=== PATIENT | female | born 1985 | race African-American/Black ===

== ENCOUNTER 2017-08-22 15:24 | Observation (INO) | payer OTHER ==
[2017-08-22] VITALS (9 sets, daily range): BP systolic 111–144; BP diastolic 65–87; PULSE 82–111; RESP 15–16; TEMP 98.4–99; O2SAT 98–100
[~2017-08-22 15:24] MED LIST: ACET325T11 PO; PREN1TAB12 PO
[2017-08-22] MEDS ORDERED: IOHEXOL 350 MG/ML 10 ML VIAL (for RAD DIAG) IVCONTRAST ONE (15:25)
[2017-08-22] MEDS ORDERED: SODIUM CHLOR 0.9% 1000 ML INJ 1,000 ML IV ONE (15:29)
--- NOTE | 2017-08-22 15:42 | PD ---
HPI Chief Complaint: Stroke Alert Time Seen by Provider: 15:29 Travel History International Travel<30 days: No Contact w/Intl Traveler<30days: No Traveled to known affect area: No History of Present Illness HPI The patient is a 32-year-old after [place] female who presents emergency department as a stroke alert. According to EMS the patient was doing laundry earlier today at approximately 2:50 PM when her noted that she had a left facial droop. The patient apparently sat down couch and had a possible syncopal episode. The patient was noted to have left facial droop and weakness to left arm and leg. EMS states the patient also has some dysarthria upon arrival, therefore, stroke alert was called in the field. EMS states that while in route to the hospital her symptoms improved and then appeared to resolve. However, just prior to arrival to the hospital the patient's symptoms returned. Upon arrival the patient does appear to have some left facial droop, has weakness of left upper extremity, left lower extremity, numbness the left side of the body. She denies any previous history of seizure or stroke. She denies any trauma to the head. Symptoms are moderate, there are no current alleviating factors or exacerbating factors. [facility] Past Medical History Medical History: Denies Significant Hx Diminished Hearing: No Past Surgical History Surgical History: No Previous Surgery Social History Alcohol Use: No Tobacco Use: No Substance Use: No Allergies-Medications (Allergen,Severity, Reaction): Coded Allergies: penicillin G (Unverified Allergy, Severe, 08/22/17) Reported Meds & Prescriptions Reported Meds & Active Scripts Active No Active Prescriptions or Reported Medications Review of Systems Except as stated in HPI: all other systems reviewed are Neg Eyes: No: Visual changes HENT: No: Headaches, Lightheadedness Cardiovascular: No: Chest Pain or Discomfort Respiratory: No: Shortness of Breath Gastrointestinal: No: Nausea, Vomiting Musculoskeletal: Positive: Weakness Neurologic: Positive: Weakness, Focal Abnormalities, Slurred Speech, Paresthesia, Sensory Disturbance Physical Exam Narrative GENERAL: Awake, alert, pleasant 32 year-old female who appears her stated age and is in no acute respiratory distress. SKIN: Focused skin assessment warm/dry. HEAD: Atraumatic. Normocephalic. EYES: Pupils equal and round. 3 mm bilateral and reactive. EOMs are intact. Visual woodson appear symmetric. ENT: No nasal bleeding or discharge. Mucous membranes pink and moist. NECK: Trachea midline. No JVD. CARDIOVASCULAR: Regular rate and rhythm. No murmur appreciated. RESPIRATORY: No accessory muscle use. Clear to auscultation. Breath sounds equal bilaterally. GASTROINTESTINAL: Abdomen soft, non-tender, nondistended. Hepatic and splenic margins not palpable. MUSCULOSKELETAL: No obvious deformities. No clubbing. No cyanosis. No edema. NEUROLOGICAL: Awake and alert. Apparent right facial droop and asymmetry when smiling. Drift noted of the left arm and left leg. Decreased sensation to the left aspect of the face in V2 and V3 distribution as well as the left arm and left leg. Finger-nose is normal. Decreased ability to do left heel to the right lee. Mild dysarthria which appeared to clear during the conversation. Oriented to person and place. Visual woodson appear symmetric. PSYCHIATRIC: Appropriate mood and affect; insight and judgment normal. Data Data Last Documented VS Vital Signs Date Time Temp Pulse Resp B/P (MAP) Pulse Ox O2 Delivery O2 Flow Rate FiO2 08/22/17 16:30 96 16 130/75 (93) 100 Room Air 08/22/17 15:30 98.4 Orders Orders Diet Npo (08/22/17 Dinner) Activity Bed Rest (08/22/17 ) Electrocardiogram (08/22/17 ) I-Stat Creatinine (08/22/17 15:29) I-Stat Profile (08/22/17 15:29) Prothrombin Time / Inr (Pt) (08/22/17 15:29) Act Partial Throm Time (Ptt) (08/22/17 15:29) Complete Blood Count With Diff (08/22/17 15:29) Fibrinogen (08/22/17 15:29) Creatine Kinase (Cpk) (08/22/17 15:29) Troponin I (08/22/17 15:29) Ua Includes Microscopic (08/22/17 15:29) Drug Screen, Random Urine (08/22/17 15:29) Type And Screen (08/22/17 15:29) Ct Brain W/O Iv Contrast(Rout) (08/22/17 ) Cta Brain W Iv Contrast W 3d (08/22/17 15:29) Cta Neck W Iv Contrast W 3d (08/22/17 15:29) Beta Hcg (Quant/Titer) (08/22/17 15:29) Consult Neurology (08/22/17 ) Blood Glucose (08/22/17 15:29) Ecg Monitoring (08/22/17 15:29) Neuro Checks Q2HX12,Q4H (08/22/17 15:29) Nursing Bedside Swallow Assess .ONCE (08/22/17 15:29) Iv Access Insert/Monitor (08/22/17 15:29) NPO (08/22/17 15:29) Oximetry (08/22/17 15:29) Oxygen Administration (08/22/17 15:29) Sodium Chlor 0.9% 1000 Ml Inj (Ns 1000 M (08/22/17 15:29) Resp Oxygen Todd C Titrat 1-4 L (08/22/17 15:29) Cath For Specimen (08/22/17 15:29) Iohexol 350 Inj (Omnipaque 350 Inj) (08/22/17 15:25) (Hub Use Only)Inp Phy Cons/Ref (08/22/17 ) Portable Eeg (08/22/17 ) Aspirin (Aspirin) (08/22/17 16:15) Admit Order (Ed Use Only) (08/22/17 17:39) Labs Laboratory Tests Test 08/22/17 15:25 08/22/17 16:30 White Blood Count 6.2 TH/MM3 Red Blood Count 4.91 MIL/MM3 Hemoglobin 13.2 GM/DL Bedside Hemoglobin 14.3 G/DL Hematocrit 40.5 % Bedside Hematocrit 42.0 % Mean Corpuscular Volume 82.4 FL Mean Corpuscular Hemoglobin 26.9 PG Mean Corpuscular Hemoglobin Concent 32.6 % Red Cell Distribution Width 13.2 % Platelet Count 298 TH/MM3 Mean Platelet Volume 7.2 FL Neutrophils (%) (Auto) 42.9 % Lymphocytes (%) (Auto) 47.5 % Monocytes (%) (Auto) 8.1 % Eosinophils (%) (Auto) 0.9 % Basophils (%) (Auto) 0.6 % Neutrophils # (Auto) 2.6 TH/MM3 Lymphocytes # (Auto) 2.9 TH/MM3 Monocytes # (Auto) 0.5 TH/MM3 Eosinophils # (Auto) 0.1 TH/MM3 Basophils # (Auto) 0.0 TH/MM3 CBC Comment DIFF FINAL Differential Comment Prothrombin Time 10.2 SEC Prothromb Time International Ratio 1.0 RATIO Activated Partial Thromboplast Time 25.0 SEC Fibrinogen 296 mg/dL Bedside Sodium 140 MMOL/L Bedside Potassium 3.5 MMOL/L Bedside Chloride 104 MMOL/L Bedside Blood Urea Nitrogen 13 MG/DL Bedside Creatinine 0.9 MG/DL Bedside Glucose 96 MG/DL Total Creatine Kinase 68 U/L Troponin I LESS THAN 0.02 NG/ML Human Chorionic Gonadotropin, Quant LESS THAN 1 MIU/ML Urine Color LIGHT-YELLOW Urine Turbidity CLEAR Urine pH 6.0 Urine Specific [place] 1.020 Urine Protein NEG mg/dL Urine Glucose (UA) NEG mg/dL Urine Ketones NEG mg/dL Urine Occult Blood TRACE Urine Nitrite NEG Urine Bilirubin NEG Urine Urobilinogen LESS THAN 2.0 MG/DL Urine Leukocyte Esterase NEG Urine RBC LESS THAN 1 /hpf Urine Squamous Epithelial Cells 1 /hpf Urine Opiates Screen NEG Urine Barbiturates Screen NEG Urine Amphetamines Screen NEG Urine Benzodiazepines Screen NEG Urine Cocaine Screen NEG Urine Cannabinoids Screen NEG MDM Medical Screen Exam Complete: Yes Emergency Medical Condition: Yes Medical Record Reviewed: Yes EKG Prior to Arrival: No Differential Diagnosis Differential diagnosis includes CVA, TIA, intracranial hemorrhage, arrhythmia, seizure, thoughts paralysis, complicated migraine. Narrative Course IV was established, labs are drawn and sent, and the patient was placed on cardiac telemetry monitoring and continuous pulse oximetry monitoring. A stroke alert was called and the patient went immediately to CT for CT of the brain and CTA. I discussed the patient with the on-call neurologist, Dr. Troncoso, he does recommend CTA of the head and neck. The patient may be a TPA candidate , we'll reevaluate her stroke scale upon return from CT to evaluate if it is improving. According to EMS the patient's symptoms improved prior to arrival and then returned, she may be having crescendo TIA versus atypical seizure presentation with Selvin's paralysis. Dr. Troncoso and I reevaluated the patient upon return from CT. Her symptoms do appear to have improved, her left lower extremity weakness has improved and her speech has improved. The patient's exam appears to wax and wane, is not repeatable, but she does appear to have improved. Therefore, no TPA will be administered. The patient will be admitted to the hospital undergo further imaging. Stroke Alert NIHSS NIH Stroke Scale Result: 4 NIHSS Time Completed: 15:26 Procedures Interpretation(s) Last Impressions Neck CTA 1/12/18 1529 Signed Impressions: Service Date/Time: Tuesday, August 22, 2017 15:42 - CONCLUSION: Normal examination. Du Garza MD Head CTA 08/22/17 1529 Signed Impressions: Service Date/Time: Tuesday, August 22, 2017 15:42 - CONCLUSION: 1. Limited examination due to suboptimal arterial bolus timing. 2. No evidence for large vessel occlusion or significant cerebral artery stenosis. Wilder Olmos MD Head CT 08/22/17 0000 Signed Impressions: Service Date/Time: Tuesday, August 22, 2017 15:37 - CONCLUSION: 1. No acute intracranial abnormality. Wilder Olmos MD Laboratory Tests Test 08/22/17 15:25 08/22/17 16:30 White Blood Count 6.2 TH/MM3 Red Blood Count 4.91 MIL/MM3 Hemoglobin 13.2 GM/DL Bedside Hemoglobin 14.3 G/DL Hematocrit 40.5 % Bedside Hematocrit 42.0 % Mean Corpuscular Volume 82.4 FL Mean Corpuscular Hemoglobin 26.9 PG Mean Corpuscular Hemoglobin Concent 32.6 % Red Cell Distribution Width 13.2 % Platelet Count 298 TH/MM3 Mean Platelet Volume 7.2 FL Neutrophils (%) (Auto) 42.9 % Lymphocytes (%) (Auto) 47.5 % Monocytes (%) (Auto) 8.1 % Eosinophils (%) (Auto) 0.9 % Basophils (%) (Auto) 0.6 % Neutrophils # (Auto) 2.6 TH/MM3 Lymphocytes # (Auto) 2.9 TH/MM3 Monocytes # (Auto) 0.5 TH/MM3 Eosinophils # (Auto) 0.1 TH/MM3 Basophils # (Auto) 0.0 TH/MM3 CBC Comment DIFF FINAL Differential Comment Prothrombin Time 10.2 SEC Prothromb Time International Ratio 1.0 RATIO Activated Partial Thromboplast Time 25.0 SEC Fibrinogen 296 mg/dL Bedside Sodium 140 MMOL/L Bedside Potassium 3.5 MMOL/L Bedside Chloride 104 MMOL/L Bedside Blood Urea Nitrogen 13 MG/DL Bedside Creatinine 0.9 MG/DL Bedside Glucose 96 MG/DL Total Creatine Kinase 68 U/L Troponin I LESS THAN 0.02 NG/ML Human Chorionic Gonadotropin, Quant LESS THAN 1 MIU/ML Urine Color LIGHT-YELLOW Urine Turbidity CLEAR Urine pH 6.0 Urine Specific [place] 1.020 Urine Protein NEG mg/dL Urine Glucose (UA) NEG mg/dL Urine Ketones NEG mg/dL Urine Occult Blood TRACE Urine Nitrite NEG Urine Bilirubin NEG Urine Urobilinogen LESS THAN 2.0 MG/DL Urine Leukocyte Esterase NEG Urine RBC LESS THAN 1 /hpf Urine Squamous Epithelial Cells 1 /hpf Urine Opiates Screen NEG Urine Barbiturates Screen NEG Urine Amphetamines Screen NEG Urine Benzodiazepines Screen NEG Urine Cocaine Screen NEG Urine Cannabinoids Screen NEG Physician Communication Physician Communication I discussed the patient with Dr. Maciel who agrees with 23 hour observation. Diagnosis Diagnosis: Primary Impression: TIA (transient ischemic attack) Qualified Codes: G45.9 - Transient cerebral ischemic attack, unspecified Admitting Physician Requests: Observation Scripts No Active Prescriptions or Reported Meds Condition: Stable Faustino Newby MD Aug 22, 2017 15:42
[2017-08-22 15:50] LABS: AUTOMATED NEUTROPHIL # 2.6 TH/MM3 (1.8-7.7); BASOPHIL % 0.6 % (0.0-2.0); EOSINOPHIL # 0.1 TH/MM3 (0-0.4); EOSINOPHIL % 0.9 % (0.0-4.0); HEMATOCRIT 40.5 % (35.0-46.0); HEMOGLOBIN 13.2 GM/DL (11.6-15.3); LYMPH % 47.5 % (9.0-44.0); LYMPHOCYTE # 2.9 TH/MM3 (1.0-4.8); MEAN CELL VOLUME 82.4 FL (80.0-100.0); MEAN CORPUSCULAR HEMOGLOBIN 26.9 PG (27.0-34.0); MEAN CORPUSCULAR HGB CONC 32.6 % (32.0-36.0); MEAN PLATELET VOLUME 7.2 FL (7.0-11.0); MONO % 8.1 % (0.0-8.0); MONOCYTE # 0.5 TH/MM3 (0-0.9); NEUT % 42.9 % (16.0-70.0); PLATELET COUNT 298 TH/MM3 (150-450); RED BLOOD COUNT 4.91 MIL/MM3 (4.00-5.30); RED CELL DISTRIBUTION WIDTH 13.2 % (11.6-17.2); WHITE BLOOD COUNT 6.2 TH/MM3 (4.0-11.0)
--- NOTE | 2017-08-22 15:54 | RADRPT ---
EXAM DATE/TIME: 08/22/2017 15:37 [facility] COMPARISON: No previous studies available for comparison. INDICATIONS : Stroke Alert; left facial droop, left side weakness. RADIATION DOSE: 45.60 CTDIvol (mGy) This report was called by Dr. Kendrick to Dr. Newby at 1550. MEDICAL HISTORY : None SURGICAL HISTORY : None. ENCOUNTER: Initial ACUITY: 1 day PAIN SCALE: 0/10 LOCATION: cranial TECHNIQUE: Multiple contiguous axial images were obtained of the head. Using automated exposure control and adj ustment of the mA and/or kV according to patient size, radiation dose was kept as low as reasonably a chievable to obtain optimal diagnostic quality images. DICOM format image data is available electro nically for review and comparison. FINDINGS: CEREBRUM: The ventricles are normal for age. No evidence of midline shift, mass lesion, hemorrhage or acute in farction. No extra-axial fluid collections are seen. POSTERIOR FOSSA: The cerebellum and brainstem are intact. The 4th ventricle is midline. The cerebellopontine angle i s unremarkable. EXTRACRANIAL: The visualized portion of the orbits is intact. SKULL: The calvaria is intact. No evidence of skull fracture. CONCLUSION: 1. No acute intracranial abnormality. Wilder Olmos MD on August 22, 2017 at 15:48 Board Certified Radiologist. This report was verified electronically.
[2017-08-22 15:59] LABS: PROTHROMBIN TIME - PATIENT 10.2 SEC (9.8-11.6)
--- NOTE | 2017-08-22 16:03 | RADRPT ---
EXAM DATE/TIME: 08/22/2017 15:42 [facility] COMPARISON: No previous studies available for comparison. INDICATIONS : Stroke alert; left facial droop, left side weakness. IV CONTRAST: 73 cc Omnipaque 350 (iohexol) IV ; Cumulative dose for multiple exams. RADIATION DOSE: 28.69 CTDIvol (mGy) ; Combined studies MEDICAL HISTORY : None SURGICAL HISTORY : None. ENCOUNTER: Initial ACUITY: 1 day PAIN SCALE: 0/10 LOCATION: cranial TECHNIQUE: Volumetric scanning was performed using a multi-row detector CT scanner. The data was post processed with a variety of visualization algorithms including full volume maximum intensity projection, multi -planar sliding thin slab reformation, curved planar reformation, and surface rendering techniques. Using automated exposure control and adjustment of the mA and/or kV according to patient size, radiat ion dose was kept as low as reasonably achievable to obtain optimal diagnostic quality images. DICO M format image data is available electronically for review and comparison. FINDINGS: Examination is limited due to suboptimal arterial bolus timing. Anterior circulation: Distal intracranial internal carotid arteries are patent with flow extending to the middle and anteri or cerebral arteries. There is no evidence for aneurysm, vessel truncation or stenosis, and no eviden ce for vascular malformation. Posterior circulation: Symmetric distal vertebral arteries with flow extending to basilar artery. There is no evidence for aneurysm, vessel truncation or stenosis, and no evidence for vascular malformation. CONCLUSION: 1. Limited examination due to suboptimal arterial bolus timing. 2. No evidence for large vessel occlusion or significant cerebral artery stenosis. Wilder Olmos MD on August 22, 2017 at 15:57 Board Certified Radiologist. This report was verified electronically.
[2017-08-22] MEDS ORDERED: ASPIRIN 325 MG TAB PO ONE (16:15)
[2017-08-22 16:17] LABS: TROPONIN I LESS THAN 0.02 NG/ML (0.02-0.05)
--- NOTE | 2017-08-22 16:19 | RADRPT ---
EXAM DATE/TIME: 08/22/2017 15:42 [facility] COMPARISON: No previous studies available for comparison. INDICATIONS : Stroke alert; left facial droop, left side weakness. IV CONTRAST: 73 cc Omnipaque 350 (iohexol) IV ; Cumulative dose for multiple exams. RADIATION DOSE: 28.69 CTDIvol (mGy) ; Combined studies MEDICAL HISTORY : None SURGICAL HISTORY : None. ENCOUNTER: Initial ACUITY: 1 day PAIN SCALE: 0/10 LOCATION: neck Elevated flow velocities and ICA/CCA ratios have been found to correlate with increased degrees of vessel stenosis, calculated as percentage of diameter relative to a normal segment of distal ICA/CCA. TECHNIQUE: Volumetric scanning was performed using a multirow detector CT scanner. The data was post processed with a variety of visualization algorithms including full-volume maximum intensity projection, multip lanar sliding thin-slab reformation, curved-planar reformation, and surface-rendering techniques. Us ing automated exposure control and adjustment of the mA and/or kV according to patient size, radiatio n dose was kept as low as reasonably achievable to obtain optimal diagnostic quality images. DICOM f ormat image data is available electronically for review and comparison. FINDINGS: AORTIC ARCH: There is a three-vessel origin of the great vessels from the aorta. No evidence of ostial narrowing. RIGHT CAROTID: The common carotid artery is intact. The carotid bulb has a normal configuration without ulceration o r narrowing. The internal carotid artery lumen is smooth without stenosis. The external carotid stanley ry is intact. LEFT CAROTID: The common carotid artery is intact. The carotid bulb has a normal configuration without ulceration or narrowing. The internal carotid artery lumen is smooth without stenosis. The external carotid ar delma is intact. VERTEBRALS: The vertebral arteries have a symmetric diameter. No stenotic lesions are seen. CONCLUSION: Normal examination. Du Garza MD on August 22, 2017 at 16:14 Board Certified Radiologist. This report was verified electronically.
[2017-08-22 17:02] LABS: BILIRUBIN, URINE NEG (NEG); BLOOD, URINE TRACE (NEG); GLUCOSE,URINE NEG (NEG); KETONE, URINE NEG (NEG); NITRITE,URINE NEG (NEG); SQUAMOUS EPITHELIAL CELL URINE 1 /hpf (0-5); URINE COLOR LIGHT-YELLOW (YELLW/STRAW); URINE LEUKOCYTE ESTERASE NEG (NEG)
[2017-08-22] MEDS ORDERED: GADODIAMIDE PF 287 MG/ML 20 ML VIAL (for RAD MRI) IVCONTRAST ONE (17:42)
--- NOTE | 2017-08-22 17:57 | HHI.HP ---
HPI Service CP Hospitalists Primary Care Physician Unknown Admission Diagnosis TIA/transient neurologic deficit Chief Complaint: facial droop Travel History International Travel<30 Days: No Contact w/Intl Traveler <30 Da: No Traveled to Known Affected Are: No History of Present Illness Pt is 32 yo female with only medical hx of uterine fibroids. Was doing laundry when noted left facial droop. EMS noted lue and lle weakness and dysarthria. It improved in ED and then came back. Now it has resolved after came back from CT. no medication. no hx migraine /sz/cva. Seen by neuro and no tpa. ASA given and CTA brain no acute cva. no hx arrhythmia. Review of Systems Other left face droop/left arm/leg weakness dysarthria Past Family Social History Past Medical History uterine fibroids s/p appe Reported Medications no home medications no otc meds other than vitamins Allergies: Coded Allergies: penicillin G (Unverified Allergy, Severe, 08/22/17) Family History mom/dad..dm/htn/hyperlipidemia Social History no etoh/tob Physical Exam Vital Signs neuro:oriented. nad. cn 2-12 grossly intact no focal ext weakness no carotid bruit hear reg lung cta abd s/nt ext no edema Vital Signs Date Time Temp Pulse Resp B/P (MAP) Pulse Ox O2 Delivery O2 Flow Rate FiO2 08/22/17 16:30 96 16 130/75 (93) 100 Room Air 08/22/17 16:15 82 16 129/73 (91) 100 Room Air 08/22/17 16:00 97 16 136/86 (103) 100 Room Air 08/22/17 15:55 102 16 131/74 (93) 100 08/22/17 15:45 111 16 125/74 (91) 98 Room Air 08/22/17 15:34 100 16 131/82 (98) 100 Room Air 08/22/17 15:30 98.4 99 16 144/87 (106) 100 Laboratory Laboratory Tests Test 08/22/17 15:25 08/22/17 16:30 White Blood Count 6.2 Red Blood Count 4.91 Hemoglobin 13.2 Bedside Hemoglobin 14.3 Hematocrit 40.5 Bedside Hematocrit 42.0 Mean Corpuscular Volume 82.4 Mean Corpuscular Hemoglobin 26.9 Mean Corpuscular Hemoglobin Concent 32.6 Red Cell Distribution Width 13.2 Platelet Count 298 Mean Platelet Volume 7.2 Neutrophils (%) (Auto) 42.9 Lymphocytes (%) (Auto) 47.5 Monocytes (%) (Auto) 8.1 Eosinophils (%) (Auto) 0.9 Basophils (%) (Auto) 0.6 Neutrophils # (Auto) 2.6 Lymphocytes # (Auto) 2.9 Monocytes # (Auto) 0.5 Eosinophils # (Auto) 0.1 Basophils # (Auto) 0.0 CBC Comment DIFF FINAL Differential Comment Prothrombin Time 10.2 Prothromb Time International Ratio 1.0 Activated Partial Thromboplast Time 25.0 Fibrinogen 296 Bedside Sodium 140 Bedside Potassium 3.5 Bedside Chloride 104 Bedside Blood Urea Nitrogen 13 Bedside Creatinine 0.9 Bedside Glucose 96 Total Creatine Kinase 68 Troponin I LESS THAN 0.02 Human Chorionic Gonadotropin, Quant LESS THAN 1 Urine Color LIGHT-YELLOW Urine Turbidity CLEAR Urine pH 6.0 Urine Specific [place] 1.020 Urine Protein NEG Urine Glucose (UA) NEG Urine Ketones NEG Urine Occult Blood TRACE Urine Nitrite NEG Urine Bilirubin NEG Urine Urobilinogen LESS THAN 2.0 Urine Leukocyte Esterase NEG Urine RBC LESS THAN 1 Urine Squamous Epithelial Cells 1 Urine Opiates Screen NEG Urine Barbiturates Screen NEG Urine Amphetamines Screen NEG Urine Benzodiazepines Screen NEG Urine Cocaine Screen NEG Urine Cannabinoids Screen NEG Result Diagram: 08/22/17 1525 Caprini VTE Risk Assessment Caprini VTE Risk Assessment: No/Low Risk (score <= 1) Caprini Risk Assessment Model Point Value = 1 Point Value = 2 Point Value = 3 Point Value = 5 Age 41-60 Minor surgery BMI > 25 kg/m2 Swollen legs Varicose veins or History of unexplained or recurrent spontaneous Oral contraceptives or hormone replacement Sepsis (< 1 month) Serious lung disease, including pneumonia (< 1 month) Abnormal pulmonary function Acute myocardial infarction Congestive heart failure (< 1 month) History of inflammatory bowel disease Medical patient at bed rest Age 61-74 Arthroscopic surgery Major open surgery (> 45 min) Laparoscopic surgery (> 45 min) Malignancy Confined to bed (> 72 hours) Immobilizing plaster cast Central venous access Age >= 75 History of VTE Family history of VTE Factor V Leiden Prothrombin [id number] Lupus anticoagulant Anticardiolipin antibodies Elevated serum homocysteine Heparin-induced thrombocytopenia Other congenital or acquired thrombophilia Stroke (< 1 month) Elective arthroplasty Hip, pelvis, or leg fracture Acute spinal cord injury (< 1 month) Prophylaxis Regimen Total Risk Factor Score Risk Level Prophylaxis Regimen 0-1 Low Early ambulation 2 Moderate Order ONE of the following: *Sequential Compression Device (SCD) *Heparin 5000 units SQ BID 3-4 Higher Order ONE of the following medications: *Heparin 5000 units SQ TID *Enoxaparin/Lovenox 40 mg SQ daily (WT < 150 kg, CrCl > 30 mL/min) *Enoxaparin/Lovenox 30 mg SQ daily (WT < 150 kg, CrCl > 10-29 mL/min) *Enoxaparin/Lovenox 30 mg SQ BID (WT < 150 kg, CrCl > 30 mL/min) AND/OR *Sequential Compression Device (SCD) 5 or more Highest Order ONE of the following medications: *Heparin 5000 units SQ TID (Preferred with Epidurals) *Enoxaparin/Lovenox 40 mg SQ daily (WT < 150 kg, CrCl > 30 mL/min) *Enoxaparin/Lovenox 30 mg SQ daily (WT < 150 kg, CrCl > 10-29 mL/min) *Enoxaparin/Lovenox 30 mg SQ BID (WT < 150 kg, CrCl > 30 mL/min) AND *Sequential Compression Device (SCD) Assessment and Plan Problem List: (1) TIA (transient ischemic attack) ICD Codes: G45.9 - Transient cerebral ischemic attack, unspecified Status: Acute Plan: 1. left face droop/dysarthria with left arm/leg weakness now resolved no obvious acute cva on ct imaging. concern for possible tia no hx afib/sz/migraine/cva. not on estrogen prep. no fh thrombosis. no cigarettes. no known murmers/pfo seen by neuro. no tpa eeg done and pending. telemetry to monitor for arrhythmia fasting lipid, tsh hypercoag panel echo to eval for thrombus..?SANJAY if neuro feels she really did have tia ivf and hob flat now. scd's asa Problem Qualifiers (1) TIA (transient ischemic attack): Qualified Codes: G45.9 - Transient cerebral ischemic attack, unspecified Kevin Maciel MD Aug 22, 2017 17:56
[2017-08-22] MEDS ORDERED: POTASSIUM CHLORIDE 20 MEQ CONTROLLED RELEASE TAB PO ONE (18:00)
[2017-08-22] MEDS ORDERED: ONDANSETRON HCL 4 MG/2 ML VIAL IV PUSH PRN (19:00)
[2017-08-22] MEDS ORDERED: ACETAMINOPHEN 325 MG TAB PO PRN (19:00)
--- NOTE | 2017-08-22 20:51 | MG ---
cc: ANDI TRONCOSO MD Lab No: Date: Age: 32 Sex: F Race: DATE OF : 1985. MEDICAL HISTORY: Left-sided facial droop, left arm and leg weakness, called a stroke alert, mild dysarthria. MEDICATIONS: Aspirin. DESCRIPTION: Background activity is 9-10 Hz alpha located posteriorly with posterior to anterior gradient that attenuates to eye-opening. During the recording, there was drop out of the background activity replaced by slow wave theta rhythm , K complexes and sleep spindles and the patient transitioned to stage II sleep. Hyperventilation was omitted. Photic stimulation did not elicit a driving response. There were no electrographic seizures or epileptiform discharges noted. INTERPRETATION: This is a normal awake, drowsy and asleep EEG. There were no electrographic seizures or epileptiform discharges. Clinical correlation is recommended. Andi Troncoso MD [facility] /8:28 PM /8:42 PM [facility]
--- NOTE | 2017-08-22 21:17 | MB ---
cc: ANDI MURPHY MD DATE OF CONSULTATION: 08/22/2017. REASON FOR CONSULTATION: Stroke alert HISTORY OF PRESENT ILLNESS: The patient is a 32-year-old -Maltese female with past medical history of uterine fibroids. She presented to [facility] as a stroke alert. She was doing laundry when her noticed left facial droop. There was also reported left upper and lower extremity weakness with mild dysarthria that has improved. Initially the NIH stroke scale by the emergency department staff was 4 to 5; however, the patient's symptoms improved down to 2 with left lower extremity numbness and mild facial weakness. The examination was inconsistent during the repeated neurological evaluation by myself and the emergency department attending. The patient showed some difficulty in lifting up the left lower extremity stating that there was muscle cramping in the leg. Denies previous similar episodes, TIAs, recent head injury, psychological trauma , medications. She is not on control pills. A stat head CT scan in the emergency department reported no acute intracranial abnormality. Neck CTA and head CTA were inconclusive. The patient was deemed to be not a candidate for IV tPA with rapidly resolving symptoms and NIH stroke scale of 1 and an inconsistent neurologic examination. Aspirin was given. To be admitted to the floor for further stroke workup. REVIEW OF SYSTEMS: A twelve-point review of systems was negative except as stated in the history of present illness. PAST MEDICAL HISTORY: Uterine fibroids. MEDICATIONS: No home medications. ALLERGIES: PENICILLIN G FAMILY HISTORY: Noncontributory SOCIAL HISTORY: No drugs. No alcohol noted. No smoking. PHYSICAL EXAMINATION: GENERAL: Awake, overweight, good historian, not in acute distress. HEAD, EYES, EARS, NOSE, THROAT: Normocephalic and atraumatic. Intact hearing and intact vision. RESPIRATORY: Clear to auscultation. No wheezes. CARDIOVASCULAR: Regular rate and rhythm. NECK: The neck is supple. No carotid bruits. No signs of meningeal irritation. NEUROLOGICAL EXAMINATION: Awake, alert and oriented to time, person and place. No dysphasia. No dysarthria. Inconsistent facial weakness. Inconsistent left lower extremity weakness. Inconsistent neurological signs. No drift was noted. Joseph sign was positive. 5/5 bilateral symmetrical upper and lower extremities. Occasional inconsistency in the left lower extremity hip flexion. Sensation is intact throughout inconsistently sometimes diminished sensation of the left lower extremity. Intact facial sensation. No sensory in extension. Reflexes 2+ bilateral symmetrical. Plantars are bilaterally downgoing. PSYCHIATRIC: Appropriate mood and affect. No hallucinations. DIAGNOSTIC TESTS: - White blood cell count 6.2, hemoglobin 15.2, platelet count 298,000. Sodium 140, potassium 3.5, BUN 13, creatinine 0.9. DIAGNOSTIC IMAGING: - Head CT scan, neck CTA, head CTA were unremarkable. DIAGNOSTIC IMPRESSION: 1. Stroke alert. - Patient inconsistent exam and NIH stroke scale 1 with rapidly improving symptoms; thus, she was deemed not a candidate for tPA. - Carlos-facial spasm/dyskinesia, left facial PLAN: 1. Neuro checks q. 1 hourly. 2. Telemetry. 3. Cardiac echocardiogram. 4. EEG. 5. Aspirin 81 milligrams daily. 6. DVT prophylaxis. 7. GI prophylaxis. Thank you for the opportunity to participate in the care of your patient. MD ONUR Marroquin/PREET /8:34 PM /9:01 PM SUZANNA
--- NOTE | 2017-08-22 21:47 | RADRPT ---
EXAM DATE/TIME: 08/22/2017 20:49 [facility] COMPARISON: No previous studies available for comparison. INDICATIONS : Left sided weakness. MEDICAL HISTORY : None. SURGICAL HISTORY : Appendectomy. ENCOUNTER: Initial ACUITY: 1 day PAIN SCORE: 0/10 LOCATION: cranial TECHNIQUE: Multiplanar, multisequence MRI of the brain was performed without contrast. FINDINGS: CEREBRUM: The ventricles are normal for age. No evidence of midline shift, mass lesion, hemorrhage or acute in farction. No extraaxial fluid collections are seen. The pituitary gland and suprasellar cistern are normal in configuration. WHITE MATTER: No significant signal abnormalities are seen in the white matter. POSTERIOR FOSSA: The cerebellum and brainstem are intact. The 4th ventricle is midline. The cerebellopontine angle is unremarkable. The cerebellar tonsils are normal in position. DIFFUSION IMAGING: No focal areas of restricted diffusion are seen. No evidence of acute infarction. EXTRACRANIAL: The visualized portions of the orbits and paranasal sinuses are unremarkable. CONCLUSION: No acute intracranial findings. Lincoln Sanders MD on August 22, 2017 at 21:43 Board Certified Radiologist. This report was verified electronically.
[2017-08-23] VITALS (9 sets, daily range): BP systolic 98–107; BP diastolic 56–68; PULSE 76–84; RESP 15–20; TEMP 97.5–98.8; O2SAT 97–99
[2017-08-23] MEDS: ASPIRIN 325 MG TAB PO SCH (08:05)
[2017-08-23 09:03] LABS: BICARBONATE 23.5 MEQ/L (21.0-32.0); CALCIUM 8.2 MG/DL (8.5-10.1); CREATININE 0.85 MG/DL (0.50-1.00); MAGNESIUM 2.1 MG/DL (1.5-2.5); PHOSPHORUS 3.4 MG/DL (2.5-4.9)
[2017-08-23 09:05] LABS: CHOLESTEROL/ HDL RATIO 3.1 RATIO; HDL CHOLESTEROL 47.4 MG/DL (40.0-60.0)
--- NOTE | 2017-08-23 12:29 | HHI.PR ---
Review/Management Diagnosis 1. Stroke alert. 2. Patient inconsistent exam and NIH stroke scale 1 to 2 with rapidly improving symptoms; thus, she was deemed not a candidate for tPA. - Facial spasm, left sided - Possible tonic spasms, ? MS? partials seizures with secondary generalization Plan 1. Neuro checks q. 1 hourly. 2. Telemetry. 3. Cardiac echocardiogram. 4. MRI brain w/o & w contrast 5. Aspirin 81 milligrams daily. 6. DVT prophylaxis. 7. GI prophylaxis. 8. I explained at length to the family the current neurologic status and the plan, and possible need in the future for a Video EEG, I answered their questions and addressed their concerns to the best of my knowledge Diagnosis/Plan: Subjective Subjective Comments No acute events reported Family at bed side Active Medications Current Medications Medications (Trade) Dose Ordered Sig/Kylee Route Start Time Stop Time Status Last Admin (Aspirin) 325 mg DAILY PO 08/23/17 09:00 08/23/17 08:05 (Tylenol) 650 mg Q4H PRN PO 08/22/17 19:00 (Zofran Inj) 4 mg Q6HR PRN IV PUSH 08/22/17 19:00 Allergies Allergies Coded Allergies penicillin G (Unverified Allergy, Severe, 08/22/17) Review of Systems All other ROS: ROS reviewed as documented in chart Exam I&O / VS Vital Signs Date Time Temp Pulse Resp B/P (MAP) Pulse Ox O2 Delivery O2 Flow Rate FiO2 08/23/17 11:41 98.8 83 20 102/62 (75) 98 08/23/17 08:13 98.5 77 20 102/58 (73) 99 08/23/17 05:53 98.7 77 15 98/56 (70) 98 08/23/17 00:00 97.9 82 16 107/59 (75) 98 08/22/17 20:00 99.0 85 15 111/65 (80) 99 08/22/17 19:24 08/22/17 16:30 96 16 130/75 (93) 100 Room Air 08/22/17 16:15 82 16 129/73 (91) 100 Room Air 08/22/17 16:00 97 16 136/86 (103) 100 Room Air 08/22/17 15:55 102 16 131/74 (93) 100 08/22/17 15:45 111 16 125/74 (91) 98 Room Air 08/22/17 15:34 100 16 131/82 (98) 100 Room Air 08/22/17 15:30 98.4 99 16 144/87 (106) 100 Exam Comments GENERAL: Awake, overweight, good historian, not in acute distress. HEAD, EYES, EARS, NOSE, THROAT: Normocephalic and atraumatic. Intact hearing and intact vision. RESPIRATORY: Clear to auscultation. No wheezes. CARDIOVASCULAR: Regular rate and rhythm. NECK: The neck is supple. No carotid bruits. No signs of meningeal irritation. NEUROLOGICAL EXAMINATION: Awake, alert and oriented to time, person and place. No dysphasia. No dysarthria. Inconsistent facial weakness. Inconsistent left lower extremity weakness. Inconsistent neurological signs. No drift was noted. Joseph sign was positive. 5/5 bilateral symmetrical upper and lower extremities. Occasional inconsistency in the left lower extremity hip flexion. Sensation is intact throughout inconsistently sometimes diminished sensation of the left lower extremity. Intact facial sensation. No sensory in extension. Reflexes 2+ bilateral symmetrical. Plantars are bilaterally downgoing. PSYCHIATRIC: Appropriate mood and affect. No hallucinations. Objective Radiology Results Last 72 hours Impressions Neck CTA 08/22/17 1529 Signed Impressions: Service Date/Time: Tuesday, August 22, 2017 15:42 - CONCLUSION: Normal examination. Du Garza MD Head CTA 08/22/17 1529 Signed Impressions: Service Date/Time: Tuesday, August 22, 2017 15:42 - CONCLUSION: 1. Limited examination due to suboptimal arterial bolus timing. 2. No evidence for large vessel occlusion or significant cerebral artery stenosis. Wilder Olmos MD Head CT 08/22/17 0000 Signed Impressions: Service Date/Time: Tuesday, August 22, 2017 15:37 - CONCLUSION: 1. No acute intracranial abnormality. Wilder Olmos MD Brain MRI 08/22/17 0000 Signed Impressions: Service Date/Time: Tuesday, August 22, 2017 20:49 - CONCLUSION: No acute intracranial findings. Lincoln Sanders MD Micro and Labs Laboratory Tests Test 08/22/17 15:25 08/22/17 16:30 08/23/17 08:15 White Blood Count 6.2 Red Blood Count 4.91 Hemoglobin 13.2 Bedside Hemoglobin 14.3 Hematocrit 40.5 Bedside Hematocrit 42.0 Mean Corpuscular Volume 82.4 Mean Corpuscular Hemoglobin 26.9 Mean Corpuscular Hemoglobin Concent 32.6 Red Cell Distribution Width 13.2 Platelet Count 298 Mean Platelet Volume 7.2 Neutrophils (%) (Auto) 42.9 Lymphocytes (%) (Auto) 47.5 Monocytes (%) (Auto) 8.1 Eosinophils (%) (Auto) 0.9 Basophils (%) (Auto) 0.6 Neutrophils # (Auto) 2.6 Lymphocytes # (Auto) 2.9 Monocytes # (Auto) 0.5 Eosinophils # (Auto) 0.1 Basophils # (Auto) 0.0 CBC Comment DIFF FINAL Differential Comment Prothrombin Time 10.2 Prothromb Time International Ratio 1.0 Activated Partial Thromboplast Time 25.0 Fibrinogen 296 Bedside Sodium 140 Bedside Potassium 3.5 Bedside Chloride 104 Bedside Blood Urea Nitrogen 13 Bedside Creatinine 0.9 Bedside Glucose 96 Total Creatine Kinase 68 Troponin I LESS THAN 0.02 Thyroid Stimulating Hormone 3rd Gen 4.240 Human Chorionic Gonadotropin, Quant LESS THAN 1 Urine Color LIGHT-YELLOW Urine Turbidity CLEAR Urine pH 6.0 Urine Specific [place] 1.020 Urine Protein NEG Urine Glucose (UA) NEG Urine Ketones NEG Urine Occult Blood TRACE Urine Nitrite NEG Urine Bilirubin NEG Urine Urobilinogen LESS THAN 2.0 Urine Leukocyte Esterase NEG Urine RBC LESS THAN 1 Urine Squamous Epithelial Cells 1 Urine Opiates Screen NEG Urine Barbiturates Screen NEG Urine Amphetamines Screen NEG Urine Benzodiazepines Screen NEG Urine Cocaine Screen NEG Urine Cannabinoids Screen NEG Blood Urea Nitrogen 12 Creatinine 0.85 Random Glucose 82 Calcium Level 8.2 Phosphorus Level 3.4 Magnesium Level 2.1 Sodium Level 143 Potassium Level 3.9 Chloride Level 112 Carbon Dioxide Level 23.5 Anion Gap 8 Estimat Glomerular Filtration Rate 93 Triglycerides Level 50 Cholesterol Level 147 LDL Cholesterol 90 HDL Cholesterol 47.4 Cholesterol/HDL Ratio 3.10 Darrion Troncoso MD Aug 23, 2017 12:28
--- NOTE | 2017-08-23 13:47 | ECHRPT ---
Indication: cva/tia CONCLUSIONS Normal left ventricular size. The left ventricular systolic function is hyperdynamic with an estimated ejection fraction in the ra nge of 65- 70%. Mild mitral valve regurgitation. There is mild tricuspid valve regurgitation. The estimated pulmonary arterial pressure is 31.3 mmHg. Mild pulmonary valve regurgitation. BP: / HR: Rhythm: MEASUREMENTS (Male / Female) Normal Values Technical Quality:Fair 2D ECHO LV Diastolic Diameter PLAX 4.3 cm 4.2 - 5.9 / 3.9 - 5.3 cm LV Systolic Diameter PLAX 2.7 cm IVS Diastolic Thickness 0.9 cm 0.6 - 1.0 / 0.6 - 0.9 cm LVPW Diastolic Thickness 0.9 cm 0.6 - 1.0 / 0.6 - 0.9 cm LV Relative Wall Thickness 0.4 RV Internal Dim ED PLAX 2.1 cm M-MODE Aortic Root Diameter MM 3.0 cm LA Systolic Diameter MM 2.8 cm LA Ao Ratio MM 0.9 AV Cusp Separation MM 1.8 cm DOPPLER Mitral E Point Velocity 74.0 cm/s Mitral A Point Velocity 51.8 cm/s Mitral E to A Ratio 1.4 LV E' Lateral Velocity 17.4 cm/s Mitral E to LV E' Lateral Ratio 4.3 LV E' Septal Velocity 11.5 cm/s Mitral E to LV E' Septal Ratio 6.4 TR Peak Velocity 231.0 cm/s TR Peak Gradient 21.3 mmHg Right Atrial Pressure 10.0 mmHg Pulmonary Artery Systolic Pressu 31.3 mmHg Right Ventricular Systolic Press 31.3 mmHg FINDINGS LEFT VENTRICLE Normal left ventricular size. The left ventricular systolic function is hyperdynamic with an estimated ejection fraction in the ra nge of 65- 70%. RIGHT VENTRICLE Normal right ventricular size and systolic function. LEFT ATRIUM The left atrial size is normal. RIGHT ATRIUM The right atrial size is normal. ATRIAL SEPTUM Normal atrial septal thickness without atrial level shunting by limited color doppler interrogation. AORTA The aortic root and proximal ascending aorta are normal in size on limited imaging. MITRAL VALVE Structurally normal mitral valve. Mild mitral valve regurgitation. AORTIC VALVE Trileaflet aortic valve. No aortic valve stenosis or regurgitation. TRICUSPID VALVE Structurally normal tricuspid valve. There is mild tricuspid valve regurgitation. The estimated pulmonary arterial pressure is 31.3 mmHg. PULMONARY VALVE Mild pulmonary valve regurgitation. VESSELS The inferior vena cava is normal in size. PERICARDIUM No pericardial effusion. Govea E. Reji MD (Electronically Signed) Final Date:23 August 2017 13:46
--- NOTE | 2017-08-23 14:02 | HHI.PR ---
Subjective Remarks Pt is a previously healthy 32 y/o F admitted with c/o Left facial droop, LUE/ LLE weakness. Pt's symptoms have waxed and waned. Pt did NOT require tPA in the ER. Pt is being co-managed with neurology. Neuroimaging studies have all been unremarkable. Pt with NO new complaints today. Objective Vitals Vital Signs Date Time Temp Pulse Resp B/P (MAP) Pulse Ox O2 Delivery O2 Flow Rate FiO2 08/23/17 11:41 98.8 83 20 102/62 (75) 98 08/23/17 08:13 98.5 77 20 102/58 (73) 99 08/23/17 05:53 98.7 77 15 98/56 (70) 98 08/23/17 00:00 97.9 82 16 107/59 (75) 98 08/22/17 20:00 99.0 85 15 111/65 (80) 99 08/22/17 19:24 08/22/17 16:30 96 16 130/75 (93) 100 Room Air 08/22/17 16:15 82 16 129/73 (91) 100 Room Air 08/22/17 16:00 97 16 136/86 (103) 100 Room Air 08/22/17 15:55 102 16 131/74 (93) 100 08/22/17 15:45 111 16 125/74 (91) 98 Room Air 08/22/17 15:34 100 16 131/82 (98) 100 Room Air 08/22/17 15:30 98.4 99 16 144/87 (106) 100 Result Diagram: 08/22/17 1525 08/23/17 0815 Imaging Last Impressions Neck CTA 08/22/17 1529 Signed Impressions: Service Date/Time: Tuesday, August 22, 2017 15:42 - CONCLUSION: Normal examination. Du Garza MD Head CTA 08/22/17 1529 Signed Impressions: Service Date/Time: Tuesday, August 22, 2017 15:42 - CONCLUSION: 1. Limited examination due to suboptimal arterial bolus timing. 2. No evidence for large vessel occlusion or significant cerebral artery stenosis. Wilder Olmos MD Head CT 08/22/17 0000 Signed Impressions: Service Date/Time: Tuesday, August 22, 2017 15:37 - CONCLUSION: 1. No acute intracranial abnormality. Wilder Olmos MD Brain MRI 08/22/17 0000 Signed Impressions: Service Date/Time: Tuesday, August 22, 2017 20:49 - CONCLUSION: No acute intracranial findings. Lincoln Sanders MD A/P Problem List: (1) TIA (transient ischemic attack) ICD Codes: G45.9 - Transient cerebral ischemic attack, unspecified Status: Acute Plan: - comgmt with Neurology - pt admitted with c/o left face droop/dysarthria with left arm/leg weakness now resolved - CTA brain (08/22) --> negative - CT brain (08/22) --> negative - CTA neck (08/22) --> negative - MRI brain (08/22) without contrast --> negative - MRI brain (08/23) with contrast --> negative study. NO findings c/w Multiple Sclerosis - EEG (08/22) --> NO seizure activity - telemetry reviewed --> NSR - hypercoag panel - echo to eval for thrombus..?SANJAY if neuro feels she really did have tia --> results of echocardiogram pending - ASA - SCDs - MRI brain with contrast ordered by Neurology - hypercoag panel pending - TSH slightly elevated 4.2. I would repeat this outpt in 4 weeks - obtain free T4, b12, folate, rpr, ammonia - per neurology consider video EEG, would need outpt referal - anticipate discharge to home 08/24 - Case d/w pt/ at the bedside at length all questions addressed as thoroughly as possible. Problem Qualifiers (1) TIA (transient ischemic attack): Qualified Codes: G45.9 - Transient cerebral ischemic attack, unspecified Kelechi Chi DO Aug 23, 2017 14:02
--- NOTE | 2017-08-23 14:57 | RADRPT ---
EXAM DATE/TIME: 08/23/2017 14:00 [facility] COMPARISON: CT BRAIN W/O CONTRAST, August 22, 2017, 15:37. INDICATIONS : Left sided weakness. Multiple sclerosis. CONTRAST: 16 cc Omniscan (gadodiamide) IV MEDICAL HISTORY : None. SURGICAL HISTORY : Appendectomy. ENCOUNTER: Initial ACUITY: 1 day PAIN SCORE: 0/10 LOCATION: cranial TECHNIQUE: Multiplanar, multisequence MRI of the brain was performed both prior to and following the administrat ion of paramagnetic contrast. FINDINGS: CEREBRUM: The ventricles are normal for age. No evidence of midline shift, mass lesion, hemorrhage or acute in farction. No extraaxial fluid collections are seen. The pituitary gland and suprasellar cistern are normal in configuration. WHITE MATTER: No significant signal abnormalities are seen in the white matter. POSTERIOR FOSSA: The cerebellum and brainstem are intact. The 4th ventricle is midline. The cerebellopontine angle is unremarkable. The cerebellar tonsils are normal in position. DIFFUSION IMAGING: No focal areas of restricted diffusion are seen. No evidence of acute infarction. EXTRACRANIAL: The visualized portions of the orbits and paranasal sinuses are unremarkable. POST-CONTRAST: No abnormal areas of parenchymal or dural enhancement. No evidence of blood-brain barrier breakdown. CONCLUSION: Unremarkable exam with no evidence of infarction or white matter abnormality. Robin Al MD on August 23, 2017 at 14:52 Board Certified Radiologist. This report was verified electronically.
[2017-08-24 00:50] VITALS: BP 99/62; PULSE 76; RESP 16; TEMP 98.4; O2SAT 98
[2017-08-24 03:40] VITALS: BP 100/66; PULSE 66; RESP 17; TEMP 97.6; O2SAT 98
[2017-08-24 08:00] VITALS: BP 103/69; PULSE 75; PULSE 79; RESP 16; TEMP 97.8; O2SAT 98
--- NOTE | 2017-08-24 08:03 | MG ---
cc: ANDI MURPHY MD Sex: F DATE OF 1985 MEDICAL HISTORY No past medical history. The patient came to the hospital with left-sided facial droop, left arm and leg weakness, numbness, dysarthria, presented as a stroke alert. MEDICATIONS Aspirin. DESCRIPTION The background activity is 8-9 Hz alpha located posteriorly, attenuates to eye opening with posterior anterior gradient. During the recording there was drop out of the background replaced by theta rhythm with appearance of sleep spindles and K complexes, transitioning to stage II sleep. Hyperventilation was omitted. Photic stimulation did not elicit driving response. There were no electrographic seizures or epileptiform discharges noted during the recording. INTERPRETATION This is a normal awake, drowsy and asleep EEG. There were no electrographic seizures or epileptiform discharges noted during the recording. Clinical correlation is recommended. MD ONUR Marroquin/MONA /12:06 AM /7:55 AM [facility]
[2017-08-24] MEDS: ASPIRIN 325 MG TAB PO SCH (09:20)
[2017-08-24 09:53] LABS: FOLATE 10.6 NG/ML (3.1-17.5); FREE T4 0.94 NG/DL (0.76-1.46)
--- NOTE | 2017-08-24 10:39 | HHI.PR ---
Review/Management Diagnosis 1. Stroke alert, no clinical or radiologic evidence of a stroke 2. Patient inconsistent exam and NIH stroke scale 1 to 2 with rapidly improving symptoms; thus, she was deemed not a candidate for tPA. 3. Facial spasm, left sided, possibly dyskinesia. Unlikely partials seizures with secondary generalization Plan -Neurologic exam is non focal - Neurologic investigations are unremarkable for an acute intracraniala abnormality - I recommend Clonazepam 0.25mg nightly - Follow up with neurology as outpatient in three weeks. - I explained at length to the family the current neurologic status and the plan , and possible need in the future for a Video EEG, I answered their questions and addressed their concerns to the best of my knowledge Diagnosis/Plan: Subjective Subjective Comments No acute events reported No headache No chest pain No dyspnea Active Medications Current Medications Medications (Trade) Dose Ordered Sig/Kylee Route Start Time Stop Time Status Last Admin (Aspirin) 325 mg DAILY PO 08/23/17 09:00 08/24/17 09:20 (Tylenol) 650 mg Q4H PRN PO 08/22/17 19:00 (Zofran Inj) 4 mg Q6HR PRN IV PUSH 08/22/17 19:00 Allergies Allergies Coded Allergies penicillin G (Unverified Allergy, Severe, 08/22/17) Review of Systems All other ROS: ROS reviewed as documented in chart Exam I&O / VS Vital Signs Date Time Temp Pulse Resp B/P (MAP) Pulse Ox O2 Delivery O2 Flow Rate FiO2 08/24/17 08:00 97.8 79 16 103/69 (80) 98 08/24/17 03:40 97.6 66 17 100/66 (77) 98 08/24/17 00:50 98.4 76 16 99/62 (74) 98 08/23/17 23:00 76 08/23/17 20:15 98.7 84 16 99/68 (78) 97 08/23/17 16:00 83 08/23/17 16:00 97.5 80 17 107/68 (81) 98 08/23/17 12:00 80 08/23/17 11:41 98.8 83 20 102/62 (75) 98 Exam Comments GENERAL: Awake, overweight, good historian, not in acute distress. HEAD, EYES, EARS, NOSE, THROAT: Normocephalic and atraumatic. Intact hearing and intact vision. RESPIRATORY: Clear to auscultation. No wheezes. CARDIOVASCULAR: Regular rate and rhythm. NECK: The neck is supple. No carotid bruits. No signs of meningeal irritation. NEUROLOGICAL EXAMINATION: Awake, alert and oriented to time, person and place. No dysphasia. No dysarthria. Inconsistent facial weakness. Inconsistent left lower extremity weakness. Inconsistent neurological signs. No drift was noted. Joseph sign was positive. 5/5 bilateral symmetrical upper and lower extremities. Occasional inconsistency in the left lower extremity hip flexion. Sensation is intact throughout inconsistently sometimes diminished sensation of the left lower extremity. Intact facial sensation. No sensory in extension. Reflexes 2+ bilateral symmetrical. Plantars are bilaterally downgoing. PSYCHIATRIC: Appropriate mood and affect. No hallucinations. Objective Micro and Labs Laboratory Tests Test 08/24/17 08:55 Ammonia 18 Vitamin B12 Level 456 Folate 10.6 Free Thyroxine 0.94 Darrion Troncoso MD Aug 24, 2017 10:39
[2017-08-24 12:00] VITALS: BP 102/62; PULSE 74; RESP 17; TEMP 98.4; O2SAT 98
--- NOTE | 2017-08-24 13:21 | HHI.DCPOC ---
Discharge Care Plan Diagnosis: (1) Transient neurologic deficit Goals to Promote Your Health * To prevent worsening of your condition and complications * To maintain your health at the optimal level Directions to Meet Your Goals Take your medications as prescribed Follow your dietary instruction Follow activity as directed Keep your appointments as scheduled Take your immunizations and boosters as scheduled If your symptoms worsen call your PCP, if no PCP go to Urgent Care Center or Emergency Room Smoking is Dangerous to Your Health. Avoid second hand smoke Call the 24-hour hour crisis hotline for domestic abuse at Marlene De La Cruz Aug 24, 2017 13:21 Kelechi Chi DO Aug 26, 2017 00:16
--- NOTE | 2017-08-24 13:32 | HHI.PR ---
Subjective Remarks No new neurological deficits Pt very anxious to go home Objective Vitals Vital Signs Date Time Temp Pulse Resp B/P (MAP) Pulse Ox O2 Delivery O2 Flow Rate FiO2 08/24/17 12:00 98.4 74 17 102/62 (75) 98 08/24/17 08:00 75 08/24/17 08:00 97.8 79 16 103/69 (80) 98 08/24/17 03:40 97.6 66 17 100/66 (77) 98 08/24/17 00:50 98.4 76 16 99/62 (74) 98 08/23/17 23:00 76 08/23/17 20:15 98.7 84 16 99/68 (78) 97 08/23/17 16:00 83 08/23/17 16:00 97.5 80 17 107/68 (81) 98 Result Diagram: 08/22/17 1525 08/23/17 0815 Other Results Laboratory Tests Test 08/22/17 15:25 08/22/17 16:30 08/23/17 08:15 08/24/17 08:55 White Blood Count 6.2 TH/MM3 Red Blood Count 4.91 MIL/MM3 Hemoglobin 13.2 GM/DL Bedside Hemoglobin 14.3 G/DL Hematocrit 40.5 % Bedside Hematocrit 42.0 % Mean Corpuscular Volume 82.4 FL Mean Corpuscular Hemoglobin 26.9 PG Mean Corpuscular Hemoglobin Concent 32.6 % Red Cell Distribution Width 13.2 % Platelet Count 298 TH/MM3 Mean Platelet Volume 7.2 FL Neutrophils (%) (Auto) 42.9 % Lymphocytes (%) (Auto) 47.5 % Monocytes (%) (Auto) 8.1 % Eosinophils (%) (Auto) 0.9 % Basophils (%) (Auto) 0.6 % Neutrophils # (Auto) 2.6 TH/MM3 Lymphocytes # (Auto) 2.9 TH/MM3 Monocytes # (Auto) 0.5 TH/MM3 Eosinophils # (Auto) 0.1 TH/MM3 Basophils # (Auto) 0.0 TH/MM3 CBC Comment DIFF FINAL Differential Comment Prothrombin Time 10.2 SEC Prothromb Time International Ratio 1.0 RATIO Activated Partial Thromboplast Time 25.0 SEC Fibrinogen 296 mg/dL Bedside Sodium 140 MMOL/L Bedside Potassium 3.5 MMOL/L Bedside Chloride 104 MMOL/L Bedside Blood Urea Nitrogen 13 MG/DL Bedside Creatinine 0.9 MG/DL Bedside Glucose 96 MG/DL Total Creatine Kinase 68 U/L Troponin I LESS THAN 0.02 NG/ML Thyroid Stimulating Hormone 3rd Gen 4.240 uIU/ML Human Chorionic Gonadotropin, Quant LESS THAN 1 MIU/ML Urine Color LIGHT-YELLOW Urine Turbidity CLEAR Urine pH 6.0 Urine Specific [place] 1.020 Urine Protein NEG mg/dL Urine Glucose (UA) NEG mg/dL Urine Ketones NEG mg/dL Urine Occult Blood TRACE Urine Nitrite NEG Urine Bilirubin NEG Urine Urobilinogen LESS THAN 2.0 MG/DL Urine Leukocyte Esterase NEG Urine RBC LESS THAN 1 /hpf Urine Squamous Epithelial Cells 1 /hpf Urine Opiates Screen NEG Urine Barbiturates Screen NEG Urine Amphetamines Screen NEG Urine Benzodiazepines Screen NEG Urine Cocaine Screen NEG Urine Cannabinoids Screen NEG Blood Urea Nitrogen 12 MG/DL Creatinine 0.85 MG/DL Random Glucose 82 MG/DL Calcium Level 8.2 MG/DL Phosphorus Level 3.4 MG/DL Magnesium Level 2.1 MG/DL Sodium Level 143 MEQ/L Potassium Level 3.9 MEQ/L Chloride Level 112 MEQ/L Carbon Dioxide Level 23.5 MEQ/L Anion Gap 8 MEQ/L Estimat Glomerular Filtration Rate 93 ML/MIN Triglycerides Level 50 MG/DL Cholesterol Level 147 MG/DL LDL Cholesterol 90 MG/DL HDL Cholesterol 47.4 MG/DL Cholesterol/HDL Ratio 3.10 RATIO Ammonia 18 MCMOL/L Vitamin B12 Level 456 PG/ML Folate 10.6 NG/ML Free Thyroxine 0.94 NG/DL Imaging Last Impressions Brain MRI 08/23/17 0000 Signed Impressions: Service Date/Time: Wednesday, August 23, 2017 14:00 - CONCLUSION: Unremarkable exam with no evidence of infarction or white matter abnormality. Robin Al MD Neck CTA 08/22/17 1529 Signed Impressions: Service Date/Time: Tuesday, August 22, 2017 15:42 - CONCLUSION: Normal examination. Du Garza MD Head CTA 08/22/17 1529 Signed Impressions: Service Date/Time: Tuesday, August 22, 2017 15:42 - CONCLUSION: 1. Limited examination due to suboptimal arterial bolus timing. 2. No evidence for large vessel occlusion or significant cerebral artery stenosis. Wilder Olmos MD Head CT 08/22/17 0000 Signed Impressions: Service Date/Time: Tuesday, August 22, 2017 15:37 - CONCLUSION: 1. No acute intracranial abnormality. Wilder Olmos MD Last Impressions Neck CTA 08/22/17 1529 Signed Impressions: Service Date/Time: Tuesday, August 22, 2017 15:42 - CONCLUSION: Normal examination. Du Garza MD Head CTA 08/22/17 1529 Signed Impressions: Service Date/Time: Tuesday, August 22, 2017 15:42 - CONCLUSION: 1. Limited examination due to suboptimal arterial bolus timing. 2. No evidence for large vessel occlusion or significant cerebral artery stenosis. Wilder Olmos MD Head CT 08/22/17 0000 Signed Impressions: Service Date/Time: Tuesday, August 22, 2017 15:37 - CONCLUSION: 1. No acute intracranial abnormality. Wilder Olmos MD Brain MRI 08/22/17 0000 Signed Impressions: Service Date/Time: Tuesday, August 22, 2017 20:49 - CONCLUSION: No acute intracranial findings. Lincoln Sanders MD Objective Remarks General: NAD, AAOx3 Chest: CTA Cardiac: Regular Abd: +BS, soft ND/NT Ext: No edema Neuro: No neurological deficits noted, CAMPBELL, no appreciable weakness in UE or LE A/P Problem List: (1) Transient neurologic deficit ICD Codes: R29.818 - Other symptoms and signs involving the nervous system Plan: - comgmt with Neurology - Pt admitted as a stroke alert with c/o left face droop/dysarthria with left arm/leg weakness now resolved, no clinical or radiologic evidence of a stroke - Pts exam has been inconsistent and she had rapidly improving symptoms; thus, she was deemed not a candidate for tPA. - CTA brain (08/22) --> negative - CT brain (08/22) --> negative - CTA neck (08/22) --> negative - MRI brain (08/22) without contrast --> negative - MRI brain (08/23) with contrast --> negative study. NO findings c/w Multiple Sclerosis - EEG (08/22) --> NO seizure activity - Telemetry reviewed --> NSR - Hypercoag panel is pending. - 2D echo --> Normal LV size, Estimated EF 65-70%, mild mitral valve regurg, mild tricuspid valve regurg, estimated PA pressure 31.3mmHg - TSH slightly elevated 4.2. I would repeat this outpt in 4 weeks - Free T4 0.94, B12 456, folate 10.6, RPR is pending, Ammonia is 18 - On 08/23 she had some facial spasm, left sided, possibly dyskinesia. Neurology feels this is unlikely partials seizures - Pt has been cleared for discharge by Neurology with outpt followup in 3 weeks. - Per neurology consider video EEG, would need outpt referral - Case d/w pt/ at the bedside at length. All questions addressed as thoroughly as possible. - Pt will need outpt followup with Neurology in 3 weeks. - She will need to followup with her PCP, Dr. Hedrick, in 1 week. Assessment and Plan Patient examined. Assessment and plan formulated with Marlene De La Cruz PA-C. I agree with the above. Marlene De La Cruz Aug 24, 2017 13:32 Kelechi Chi DO Aug 26, 2017 00:15
[2017-08-24 16:00] VITALS: BP 113/67; PULSE 69; RESP 17; TEMP 97.8; O2SAT 100
--- NOTE | 2017-08-24 16:56 | HHI.DCPOC ---
Discharge Care Plan Diagnosis: (1) Transient neurologic deficit Goals to Promote Your Health * To prevent worsening of your condition and complications * To maintain your health at the optimal level Directions to Meet Your Goals Take your medications as prescribed Follow your dietary instruction Follow activity as directed Keep your appointments as scheduled Take your immunizations and boosters as scheduled If your symptoms worsen call your PCP, if no PCP go to Urgent Care Center or Emergency Room Smoking is Dangerous to Your Health. Avoid second hand smoke Call the 24-hour hour crisis hotline for domestic abuse at Kelechi Chi DO Aug 24, 2017 16:56
[2017-08-27 16:24] LABS: CARDIOLIPIN IGG AB <9.4 GPL; CARDIOLIPIN IGM AB <9.4 MPL
[2017-08-27 17:31] LABS: PROTEIN C ACTIVITY 90 % (70 - 150); PROTEIN S ACTIVITY 61 % (50 - 160)
[2017-08-27 17:50] LABS: DRVVT 1:1 MIX ND (CORRECTED); DRVVT CONFIRM ND (NEGATIVE); HEXAGONAL PHASE CONFIRM ND (NEGATIVE)
[2017-08-28 03:50] LABS: BETA2-GLYCOPROTEIN IGA <9 SAU (< OR = 20); BETA2-GLYCOPROTEIN IGG <9 SGU (< OR = 20); BETA2-GLYCOPROTEIN IGM <9 SMU (< OR = 20)
== END 2017-08-24 18:52 | disposition home or self-care (01) ==
LOC: NEPE 15:24 → UNDOADMOB 17:41 → NEDA 17:41 → N05B 19:36 → UNDODISOB 08-24 18:52
PROVIDERS: ADMIT Hospitalist; ATTEND Hospitalist
DX: R29.818 Other symptoms and signs involving the nervous system (principal); I08.1 Rheumatic disorders of both mitral and tricuspid valves; R56.9 Unspecified convulsions; G24.9 Dystonia, unspecified; Z79.82 Long term (current) use of aspirin
CPT/HCPCS: 70450; 70496; 70498; 70551; 70553; 80048; 80061; 80307; 81001; 81240; 81241; 82140; 82435; 82550; 82565; 82607; 82746; 82947; 83735; 84100; 84132; 84295; 84439; 84443; 84484; 84520; 84702; 85025; 85303; 85306; 85384; 85610; 85613; 85730; 86146; 86147; 86592; 86850; 86900; 86901; 93306; 95819; 96360; 99285; A9579; G0378; J7030; P9612; Q9967

== ENCOUNTER 2017-11-10 17:02 | Emergency (ER) | payer OTHER ==
[~2017-11-10] VITALS: Ht 170.2 cm; Wt 85.0 kg
[2017-11-10 17:22] VITALS: BP 132/74; PULSE 80; RESP 16; TEMP 98.7; O2SAT 100
--- NOTE | 2017-11-10 18:43 | PD ---
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 She denies any fevers or any other issues. Modifying Factors: None Associated Signs & Symptoms: , passing large blood clots Risk Factors: None PFSH Past Medical History Medical History: Denies Significant Hx Cancer: No Cardiovascular Problems: No Diminished Hearing: No Genitourinary: No Immune Disorder: No Musculoskeletal: No Neurologic: No Reproductive: Yes Respiratory: No Tetanus Vaccination: < 5 Years Influenza Vaccination: No ?: LMP: 08/28/17 : 2 Para: 1 Miscarriage: 0 : 0 Past Surgical History Surgical History: No Previous Surgery Social History Alcohol Use: No Tobacco Use: No Substance Use: No Allergies-Medications (Allergen,Severity, Reaction): Coded Allergies: penicillin G (Unverified Allergy, Severe, 11/10/17) Reported Meds & Prescriptions Reported Meds & Active Scripts Active No Active Prescriptions or Reported Medications Review of Systems Except as stated in HPI: all other systems reviewed are Neg Physical Exam Narrative GENERAL: Well-developed young -[place] female patient currently in mild distress. Awake and oriented 3. SKIN: Focused skin assessment warm/dry. HEAD: Atraumatic. Normocephalic. EYES: Pupils equal and round. No scleral icterus. No injection or drainage. ENT: No nasal bleeding or discharge. Mucous membranes pink and moist. NECK: Trachea midline. No JVD. Supple. CARDIOVASCULAR: Regular rate and rhythm. No murmur appreciated. RESPIRATORY: No accessory muscle use. Clear to auscultation. Breath sounds equal bilaterally. GASTROINTESTINAL: Abdomen soft, mild pelvic tenderness without guarding or rebound, nondistended. Hepatic and splenic margins not palpable. GENITOURINARY: Normal external genitalia without lesions or erythema. Vaginal vault with with small amount of blood but no drainage. Cervical os was closed without drainage. No cervical motion tenderness. Uterus nontender. Bilateral adnexa nontender without masses. MUSCULOSKELETAL: No obvious deformities. No clubbing. No cyanosis. No edema. NEUROLOGICAL: Awake and alert. No obvious cranial nerve deficits. Motor grossly within normal limits. Normal speech. PSYCHIATRIC: Appropriate mood and affect; insight and judgment normal. Data Data Last Documented VS Vital Signs Date Time Temp Pulse Resp B/P (MAP) Pulse Ox O2 Delivery O2 Flow Rate FiO2 11/10/17 20:45 78 16 100/63 (75) 100 Room Air 11/10/17 17:22 98.7 Orders Orders Complete Blood Count With Diff (11/10/17 18:38) Comprehensive Metabolic Panel (11/10/17 18:38) Urinalysis - C+S If Indicated (11/10/17 18:38) Iv Access Insert/Monitor (11/10/17 18:38) Lipase (11/10/17 18:38) Beta Hcg (Quant/Titer) (11/10/17 18:40) Complete Rh (11/10/17 18:40) Us Pelvis (Ques Preg/Ectopic) (11/10/17 21:45) Ed Discharge Order (11/10/17 22:18) Labs Laboratory Tests Test 11/10/17 18:35 11/10/17 19:45 White Blood Count 6.0 TH/MM3 Red Blood Count 4.27 MIL/MM3 Hemoglobin 11.5 GM/DL Hematocrit 35.6 % Mean Corpuscular Volume 83.3 FL Mean Corpuscular Hemoglobin 27.0 PG Mean Corpuscular Hemoglobin Concent 32.4 % Red Cell Distribution Width 13.5 % Platelet Count 271 TH/MM3 Mean Platelet Volume 7.9 FL Neutrophils (%) (Auto) 57.5 % Lymphocytes (%) (Auto) 34.3 % Monocytes (%) (Auto) 6.5 % Eosinophils (%) (Auto) 0.4 % Basophils (%) (Auto) 1.3 % Neutrophils # (Auto) 3.4 TH/MM3 Lymphocytes # (Auto) 2.1 TH/MM3 Monocytes # (Auto) 0.4 TH/MM3 Eosinophils # (Auto) 0.0 TH/MM3 Basophils # (Auto) 0.1 TH/MM3 CBC Comment DIFF FINAL Differential Comment Blood Urea Nitrogen 5 MG/DL Creatinine 0.64 MG/DL Random Glucose 79 MG/DL Total Protein 7.7 GM/DL Albumin 3.4 GM/DL Calcium Level 8.7 MG/DL Alkaline Phosphatase 59 U/L Aspartate Amino Transf (AST/SGOT) 14 U/L Alanine Aminotransferase (ALT/SGPT) 21 U/L Total Bilirubin 0.4 MG/DL Sodium Level 136 MEQ/L Potassium Level 3.7 MEQ/L Chloride Level 106 MEQ/L Carbon Dioxide Level 22.2 MEQ/L Estimat Glomerular Filtration Rate 129 ML/MIN Lipase 67 U/L Human Chorionic Gonadotropin, Quant 81415 MIU/ML Urine Color YELLOW Urine Turbidity CLEAR Urine pH 6.0 Urine Specific [place] 1.015 Urine Protein NEG mg/dL Urine Glucose (UA) NEG mg/dL Urine Ketones 15 mg/dL Urine Occult Blood LARGE Urine Nitrite NEG Urine Bilirubin NEG Urine Urobilinogen 0.2 MG/DL Urine Leukocyte Esterase NEG Urine RBC 4-9 /hpf Urine WBC 0-2 /hpf Urine Squamous Epithelial Cells 0-5 /hpf Urine Bacteria NONE /hpf Microscopic Urinalysis Comment CULT NOT INDICATED MDM Medical Decision Making Medical Screen Exam Complete: Yes Emergency Medical Condition: Yes Medical Record Reviewed: Yes Interpretation(s) Laboratory Tests Test 11/10/17 18:35 11/10/17 19:45 Hemoglobin 11.5 GM/DL (11.6-15.3) Blood Urea Nitrogen 5 MG/DL (7-18) Aspartate Amino Transf (AST/SGOT) 14 U/L (15-37) Lipase 67 U/L (73-393) Human Chorionic Gonadotropin, Quant 86987 MIU/ML (0-5) Urine Ketones 15 mg/dL (NEG) Urine Occult Blood LARGE (NEG) Urine RBC 4-9 /hpf (0-3) Differential Diagnosis Threatened AB versus ectopic versus dysmenorrhea Narrative Course Her cervical office is closed. There is a small amount of blood with in the vaginal vault. She is Rh+. Transabdominal ultrasound was done by me after her hCG was received and shows IUP with good heart tones. At this point, my plan would be to release the patient would follow-up to her SYSTEMS DEVELOPMENT MANAGER within 2-3 days. Pelvic rest. Return for any worsening in bleeding, pain, and as needed. The plan has been discussed with the patient and she states understanding. Procedures Procedure Narrative Transabdominal ultrasound was done by me shows IUP with good movements and heart tones of 158 bpm. Diagnosis Primary Impression: Threatened Scripts No Active Prescriptions or Reported Meds Disposition: 01 DISCHARGE HOME Condition: Stable [place]arothai,Rewadee MD Nov 10, 2017 18:43
[2017-11-10 18:48] LABS: AUTOMATED NEUTROPHIL # 3.4 TH/MM3 (1.8-7.7); BASOPHIL # 0.1 TH/MM3 (0-0.2); BASOPHIL % 1.3 % (0.0-2.0); EOSINOPHIL % 0.4 % (0.0-4.0); HEMATOCRIT 35.6 % (35.0-46.0); HEMOGLOBIN 11.5 GM/DL (11.6-15.3); LYMPH % 34.3 % (9.0-44.0); LYMPHOCYTE # 2.1 TH/MM3 (1.0-4.8); MEAN CELL VOLUME 83.3 FL (80.0-100.0); MEAN CORPUSCULAR HGB CONC 32.4 % (32.0-36.0); MEAN PLATELET VOLUME 7.9 FL (7.0-11.0); MONO % 6.5 % (0.0-8.0); MONOCYTE # 0.4 TH/MM3 (0-0.9); NEUT % 57.5 % (16.0-70.0); PLATELET COUNT 271 TH/MM3 (150-450); RED BLOOD COUNT 4.27 MIL/MM3 (4.00-5.30); RED CELL DISTRIBUTION WIDTH 13.5 % (11.6-17.2)
[2017-11-10 19:11] LABS: CHLORIDE 106 MEQ/L (98-107); SODIUM (NA) 136 MEQ/L (136-145)
[2017-11-10 19:14] LABS: CALCIUM 8.7 MG/DL (8.5-10.1)
[2017-11-10 19:15] LABS: ALBUMIN 3.4 GM/DL (3.4-5.0); BICARBONATE 22.2 MEQ/L (21.0-32.0); BLOOD UREA NITROGEN 5 MG/DL (7-18); GLUCOSE,RANDOM 79 MG/DL (74-106)
[2017-11-10 19:18] LABS: ALT (GPT) 21 U/L (10-53); AST (GOT) 14 U/L (15-37); CREATININE 0.64 MG/DL (0.50-1.00); GLOMERULAR FILTRATION RATE 129 ML/MIN (>89)
[2017-11-10 19:20] LABS: TOTAL BILIRUBIN ADULT 0.4 MG/DL (0.2-1.0); TOTAL PROTEIN 7.7 GM/DL (6.4-8.2)
[2017-11-10 19:21] LABS: ALKALINE PHOSPHATASE 59 U/L (45-117)
[2017-11-10 19:57] LABS: BILIRUBIN, URINE NEG (NEG); BLOOD, URINE LARGE (NEG); GLUCOSE,URINE NEG (NEG); KETONE, URINE 15 mg/dL (NEG); NITRITE,URINE NEG (NEG); URINE COLOR YELLOW (YELLW/STRAW); URINE LEUKOCYTE ESTERASE NEG (NEG)
[2017-11-10 20:01] LABS: SQUAMOUS EPITHELIAL CELL URINE 0-5 /hpf (0-5); WBC, URINE 0-2 /hpf (0-5)
[2017-11-10 20:45] VITALS: BP 100/63; PULSE 78; RESP 16; O2SAT 100
[2017-11-10 22:24] VITALS: BP 108/72
== END 2017-11-10 22:31 | disposition home or self-care (01) ==
LOC: PHED 17:02
DX: O20.0 Threatened abortion (principal); Z3A.10 10 weeks gestation of pregnancy
CPT/HCPCS: 80053; 81001; 83690; 84702; 85025; 99283

== ENCOUNTER 2018-05-30 14:36 | Inpatient (IN) ==
[2018-05-30] MEDS ORDERED: Sodium Chlor 0.9% Inj 500 ML IV.SIG PRN (15:12)
[2018-05-30] MEDS ORDERED: fentaNYL Citrate Inj 100 MCG/2 ML Ampul IV.PUSH PRN ×2 (15:12)
[2018-05-30] MEDS ORDERED: Naloxone Inj 0.4 MG/ML Vial IV.PUSH PRN ×2 (15:12→20:36)
[2018-05-30] MEDS ORDERED: Sod Chloride 0.9% Inj 1,000 ML IV.CONT PRN (15:12)
[2018-05-30] MEDS ORDERED: Citric Acid/Sodium Citrate Liq 30 ML UDC PO SCH (15:15)
--- NOTE | 2018-05-30 15:15 | ED ---
History of Present Illness Primary Care Physician: Min Cobos DO Chief Complaint: contractions History of Present Illness: Patient is a 32 yo at 39 weeks and 2 days. EDC 06-04-[address] Guerrero. Care previously uncomplicated. Prior delivery, uncomplicated, delivered at term. Pt reports worsening contractions since 1pm today. Increasing frequency and strength. Denies vaginal bleeding or leaking. Active movements. GBS is negative. Weeks Gestation:: 39 Para: 1 : 2 Review of Systems All other systems reviewed negative except as stated in HPI PMFSH - Social History I have reviewed the patient's Social History: Yes - Tobacco History Second Hand Smoke Exposure: No Tobacco Use In Past 30 Days: No Smoking Status: Never smoker - Alcohol History How Often Do You Have a Drink Containing Alcohol: Never - Substance Use History Substance History: No History of Abuse - Travel History History of Recent Travel: No Recent Travel in the [place] Within the Last 8 Weeks: No Recent Travel Out of the Country Within the Last 8 Weeks: No Medications and Allergies Allergies Allergy/AdvReac Type Severity Reaction Status Date / Time penicillin G Allergy Severe Unverified 11/10/17 17:45 Exam Vital signs: Vital Signs 05/30/18 14:52 05/30/18 14:53 Temperature 97.8 F Pulse Rate 108 H Respiratory Rate 18 Blood Pressure 122/77 Narrative: GENERAL: Well-nourished, well-developed patient. SKIN: Warm and dry. HEAD: Normocephalic and atraumatic. EYES: No scleral icterus. No injection or drainage. ENT: No nasal drainage noted. Mucous membranes pink. Airway patent. NECK: Supple, trachea midline. No JVD. CARDIOVASCULAR: Regular rate and rhythm without murmurs, gallops, or rubs. RESPIRATORY: Breath sounds equal bilaterally. No accessory muscle use. BREASTS: Bilateral exam showed no masses , no retractions, no nipple discharge. ABDOMEN/GI: Abdomen soft, non-tender, bowel sounds present, no rebound, no guarding Gravid to [38] weeks size Fundal Height: [38cm] GENITOURINARY: External Genitalia: intact and normal in appearance BUS glands: [wnl] Cervix: [soft] Dilatation: [4cm] Effacement: [50%] Station: [-3] posterior Presentation: [vertex] Membranes: [intact] Uterine Contractions: [3-4 minutes] FHT's: Category: [1] Baseline: [130s] Reactive: [-] Variability: [moderate] Decels: [none] EXTREMITIES: No cyanosis or edema. BACK: Nontender without obvious deformity. No CVA tenderness. NEUROLOGICAL: Awake and alert. Motor and sensory grossly within normal limits. Five out of 5 muscle strength in all muscle groups. Normal speech. - Constitutional no acute distress - Routine HEENT Exam Head: Present: normocephalic Assessment and Plan - Diagnosis (1) with 39 completed weeks gestation Code(s): Z3A.39 - 39 weeks gestation of Status: Acute (2) Admitted to labor and delivery Code(s): Z78.9 - Other specified health status Status: Acute Plan: GBS status negative. Cervix is 4cm dilated, change from 3 cm on exam in office on 05/28/2018, having active contractions. Discussed with Dr Pitts. Discharge Plan - Discharge Disposition Patient Disposition: 30 Still Patient - Discharge Condition Condition: Fair - Discharge Details Diagnosis: Admitted to labor and delivery - Physicians Team ED Provider: Nolan Meadows Primary Care Provider: Min Cobos - Discharge Instructions Print Language: Luxembourgish
[2018-05-30 15:29] LABS: Baso % (Auto) 0.3 % (0.0-2.0); Eos % (Auto) 0.1 % (0.0-4.0); Hematocrit 37.3 % (35.0-46.0); Hemoglobin 12.3 gm/dL (11.6-15.3); Lymph # (Auto) 1.3 th/mm3 (1.0-4.8); Mean Corpuscular HGB Conc 32.9 % (32.0-36.0); Mean Corpuscular Hemoglobin 28.9 pg (27.0-34.0); Mean Corpuscular Volume 87.7 fL (80.0-100.0); Mean Platelet Volume 7.2 fL (7.0-11.0); Mono # (Auto) 0.6 th/mm3 (0.0-0.9); Mono % (Auto) 8.3 % (0.0-8.0); Neut # (Auto) 5.2 th/mm3 (1.8-7.7); Neut % (Auto) 73.3 % (16.0-70.0); Platelet Count 242 th/mm3 (150-450); Red Blood Count 4.25 mil/mm3 (4.00-5.30); Red Cell Distribution Width 14.4 % (11.6-17.2); White Blood Count 7.1 th/mm3 (4.0-11.0)
[2018-05-30] MEDS ORDERED: Oxytocin 30 Units/500ml Premix 30 UNITS/500 ML BAG IV.SIG ONE (15:30)
[2018-05-30] MEDS ORDERED: Lidocaaine 1.5%/Epinephrine 1:200,000 PF Inj 5 ML Amp ONE (15:44)
[2018-05-30] MEDS ORDERED: Lidocaine PF 1% Inj 5 ML Vial ONE (15:44)
[2018-05-30] MEDS ORDERED: fentaNYL 2MCG-Bupiv 0.125% Epi 150 ML EPIDURAL ONE (15:44)
[2018-05-30 15:50] LABS: Amphetamine Urine With Conf Neg (Neg); Benzodiazepine Urine With Conf Neg (Neg)
[2018-05-30] MEDS ORDERED: Measles/Mumps/Rubella Vaccine Inj 0.5 ML Vial SQ ONE (16:00)
[2018-05-30] MEDS ORDERED: Diphtheria/Tetanus/Pertussis Vaccine Inj 0.5 ML Syringe IM ONE (16:00)
[2018-05-30] MEDS ORDERED: fentaNYL Citrate Inj 100 MCG/2 ML Ampul EPIDURAL ONE (17:02)
[2018-05-30] MEDS ORDERED: fentaNYL 2MCG-Bupiv 0.125% Epi 150 ML EPIDURAL PRN (17:02)
[2018-05-30] MEDS ORDERED: Oxytocin 30 Units/500ml Premix 30 UNITS/500 ML BAG IV.SIG PRN (18:26)
--- NOTE | 2018-05-30 18:26 | P.OBGPN ---
S: Doing well, comfortable after epidural. O: VS: Exam: 6-7 cm / 80%/-2/AROM this check, thick meconium. FHTs: 130s, moderate variability, accelerations present, no decelerations TOCO: Contractions poorly traced. A/P 32-year-old at 39 weeks and 2 days by L/11 here for labor. 1. IUP: Category 1 tracing -Male fetus, cephalic, GBS negative, EFW 7.5 pounds 2. Labor: AROM this check, anticipate , Pitocin if needed. - Mec: discussed that if vigorous then no need for ET suction.
[2018-05-30] MEDS ORDERED: Lidocaine 1% Inj 50 ML Vial ONE (20:12)
[2018-05-30] MEDS ORDERED: Benzocaine 20% Top Spray 60 ML Can TOPICAL PRN (20:36)
[2018-05-30] MEDS ORDERED: Oxytocin 30 Units/500ml Premix 30 UNITS/500 ML BAG IV.CONT PRN (20:36)
[2018-05-30] MEDS ORDERED: Witch Hazel 50%/Glyderin 12.5% 40 Pad Jar RECTAL PRN (20:36)
[2018-05-30] MEDS ORDERED: Zolpidem Tartrate 5 MG Tablet PO PRN (20:36)
[2018-05-30] MEDS ORDERED: Bisacodyl 10 MG Supp RECTAL PRN (20:36)
[2018-05-30] MEDS ORDERED: Acetaminophen 325 MG Tablet PO PRN (20:36)
--- NOTE | 2018-05-30 20:36 | P.OP ---
Surgeon: Luis Pitts MD Operation and Findings: Preoperative diagnosis: 1. Intrauterine at 39 weeks and 2 days Postop diagnosis 1. Same as above status post vaginal delivery Procedure 1. Spontaneous vaginal delivery Surgeon Dr. Luis Pitts Surfacing Technician: Kiran labor and delivery staff Findings: 1. Viable male at 2024, thin meconium, Apgars 8 and 8, weight: 3530g 2. Intact placenta with three-vessel cord at 2027 3. Intact perineum vagina and cervix Anesthesia: Epidural Specimen: Placenta to disposal Estimated blood loss: 300 cc Fluid replacement: Lactated Ringer's and Pitocin Urine output: None recorded DVT prophylaxis: None required Antibiotics: None required Counts: correct x2 Time out done: yes Disposition: This stable to Indications: 32-year-old who presented at 39 weeks and 2 days in labor, she was artificially ruptured and progressed to complete with reassuring heart tones without augmentation, I was called to the room when she was complete. Description of procedure: The patient began pushing after the bed was broken down, the head upon was allowed to restitute naturally for delivery with a supported perineum, with gentle downward guidance the anterior shoulder was delivered followed by gentle upper guidance for the posterior shoulder, the torso and lower extremities were delivered with ease and with continued perineal support. The had spontaneous cry and was placed on mom's abdomen for skin to skin contact, we allowed delayed cord clamping. After the cord was clamped and cut, cord blood was obtained. Pitocin was bolused and with fundal massage the placenta was delivered, there is minimal uterine bleeding and uterus was firm. The perineum, vagina and cervix were inspected and found intact. The patient tolerated the procedure well and was left in the birthing suite with her .
[2018-05-31] MEDS: Senna/Docusate Sodium 8.6/50 MG Tablet PO SCH ×3 (00:29→20:04)
--- NOTE | 2018-05-31 08:10 | P.PNOB ---
Subjective Post day: 1 Interval history: doing well, VB < menses Objective Vital Signs/I&O: Vital Signs 05/30/18 14:52 05/30/18 14:53 05/30/18 15:55 Temperature 97.8 F Pulse Rate 108 H 84 Respiratory Rate 18 18 Blood Pressure 122/77 107/73 05/30/18 16:00 05/30/18 16:40 05/30/18 16:45 Temperature Pulse Rate 102 H 103 H 98 H Respiratory Rate 18 Blood Pressure 106/66 119/62 107/52 L 05/30/18 16:50 05/30/18 17:20 05/30/18 17:25 Temperature 97.8 F Pulse Rate 107 H 110 H 106 H Respiratory Rate 18 Blood Pressure 97/59 L 05/30/18 17:40 05/30/18 17:55 05/30/18 18:05 Temperature Pulse Rate 99 H 87 104 H Respiratory Rate 18 Blood Pressure 104/57 L 99/72 L 110/67 05/30/18 18:35 05/30/18 18:45 05/30/18 18:50 Temperature Pulse Rate 98 H 100 H 103 H Respiratory Rate Blood Pressure 110/68 109/71 05/30/18 19:05 05/30/18 19:15 05/30/18 19:20 Temperature 97.5 F L Pulse Rate 101 H 88 88 Respiratory Rate 18 Blood Pressure 111/71 117/81 05/30/18 19:25 05/30/18 19:35 05/30/18 19:40 Temperature Pulse Rate 93 H 89 86 Respiratory Rate Blood Pressure 110/67 05/30/18 19:41 05/30/18 19:55 05/30/18 20:05 Temperature Pulse Rate 90 92 H Respiratory Rate 18 Blood Pressure 120/81 120/77 05/30/18 20:25 05/30/18 20:34 05/30/18 20:55 Temperature Pulse Rate 97 H 112 H 100 H Respiratory Rate 18 18 Blood Pressure 117/75 120/96 H 05/30/18 21:01 05/30/18 21:07 05/30/18 21:16 Temperature 97.7 F Pulse Rate 89 88 Respiratory Rate 18 Blood Pressure 116/77 130/103 H 05/30/18 21:25 05/30/18 21:30 05/30/18 21:38 Temperature Pulse Rate 72 Respiratory Rate 18 18 Blood Pressure 102/68 05/30/18 22:07 05/30/18 22:55 Temperature 98.2 F 97.8 F Pulse Rate 81 81 Respiratory Rate 18 18 Blood Pressure 114/65 110/69 Intake & Output 05/30/18 05/31/18 05/31/18 18:59 06:59 18:59 Intake Total 1000 / 1000 Balance 1000 / 1000 Weight 94.055 kg Intake: IV 1000 / 1000 LR 1000 mL Inj 1,000 ML @ 3000 1000 / 1000 mls/hr IV.SIG UNSCH PRN Rx#: [id number] Result Diagrams: 05/30/18 15:20 Objective Remarks: GENERAL: Well-nourished, well-developed patient. CARDIOVASCULAR: Regular rate and rhythm without murmurs, gallops, or rubs. RESPIRATORY: Breath sounds equal bilaterally. No accessory muscle use. ABDOMEN/GI: Abdomen soft, non-tender. Fundus: Firm, non-tender at umbilicus. GENITOURINARY: Light to moderate bleeding. EXTREMITIES: No cyanosis or edema, non-tender, without signs of DVT. Medications and IVs: Active Medications Acetaminophen (Tylenol) 650 mg PO Q4H PRN PRN Reason: PAIN SCALE 1 TO 2 Al Hydroxide/Mg Hydroxide (Milk Of Magnesia Liq) 30 ml PO Q12H PRN PRN Reason: Mild Constipation Benzocaine (Americaine 20% [place]) 1 spray TOPICAL Q4H PRN PRN Reason: For Perineum Discomfort Bisacodyl (Dulcolax Supp) 10 mg RECTAL DAILY PRN PRN Reason: SEVERE CONSITIPATION Ephedrine Sulfate (Ephedrine/Ns Syringe) 10 mg IV.PUSH UNSCH PRN PRN Reason: SEE LABEL COMMENTS Stop: 05/31/18 17:02 Fentanyl/Bupivacaine/Sodium Chlor (Fentanyl 2 Mcg-Bupiv 0.125% Epi) 150 mls @ 12 mls/hr EPIDURAL PRN PRN PRN Reason: for Labor Pain Oxytocin (Pitocin 30 Units/Ns 500 Ml Premix) 30 units in 500 mls @ 100 mls/hr IV.CONT UNSCH PRN PRN Reason: Heavy bleeding Last Infusion: 05/31/18 01:00 Dose: 100 mls/hr Ibuprofen (Motrin) 800 mg PO Q8H PRN PRN Reason: For Cramping Last Admin: 05/31/18 02:10 Dose: 800 mg Lactulose (Lactulose Liq) 30 ml PO DAILY PRN PRN Reason: SEVERE CONSITIPATION Miscellaneous Information (Misc Information) 1 each OTHER UNSCH PRN PRN Reason: SEE LABEL COMMENTS Stop: 05/31/18 17:02 Miscellaneous Information (Misc Information) 1 each OTHER UNSCH PRN PRN Reason: SEE LABEL COMMENTS Stop: 05/31/18 17:02 Naloxone HCl (Narcan Inj) 0.1 mg IV.PUSH Q2M PRN PRN Reason: for opiate reversal Ondansetron HCl (Zofran Inj) 4 mg IV.PUSH Q6H PRN PRN Reason: NAUSEA OR VOMITING Last Admin: 05/30/18 19:01 Dose: 4 mg Ondansetron HCl (Zofran Odt) 4 mg PO Q6H PRN PRN Reason: NAUSEA OR VOMITING Oxycodone/Acetaminophen (Percocet 5/325 Mg) 1 tab PO Q4H PRN PRN Reason: PAIN SCALE 3 TO 5 Oxycodone/Acetaminophen (Percocet 5/325 Mg) 2 tab PO Q4H PRN PRN Reason: PAIN SCALE 6 TO 10 Senna/Docusate Sodium (Beth-Colace) 1 tab PO BID [facility] Last Admin: 05/31/18 00:29 Dose: Not Given Sennosides (Senokot) 17.2 mg PO Q12H PRN PRN Reason: Moderate Constipation Sodium Chloride (Ns Flush) 2 ml IV.FLUSH PRN PRN PRN Reason: FLUSH AFTER USING IV ACCESS Sodium Chloride (Ns Flush) 2 ml IV.FLUSH BID [facility] Last Admin: 05/31/18 00:28 Dose: Not Given Witch Lori/Glycerin (Tucks Pads) 1 applicatio RECTAL QID PRN PRN Reason: HEMORRHOIDS Zolpidem Tartrate (Ambien) 5 mg PO HS PRN PRN Reason: SLEEP Assessment and Plan - Plan 32 yo s/p at 39w2d 1. PPD #1: AF, VSS, continue routine care, anticipate d/c home tomorrow, routine follow up. - male, discussed circumcision, desires to be done tomorrow after his bath
[2018-06-01] MEDS ORDERED: Diphtheria/Tetanus/Pertussis Vaccine Inj 0.5 ML Syringe IM ONE (08:00)
--- NOTE | 2018-06-01 08:13 | P.PNOB ---
Subjective Post day: 2 Interval history: PPD#2, s/p , stable, cleared for discharge Objective Vital Signs/I&O: Vital Signs 05/31/18 08:35 05/31/18 20:00 Temperature 98.0 F 97.6 F Pulse Rate 87 71 Respiratory Rate 18 18 Blood Pressure 103/73 111/78 Result Diagrams: 05/30/18 15:20 Objective Remarks: GENERAL: Well-nourished, well-developed patient. CARDIOVASCULAR: Regular rate and rhythm without murmurs, gallops, or rubs. RESPIRATORY: Breath sounds equal bilaterally. No accessory muscle use. ABDOMEN/GI: Abdomen soft, non-tender. Fundus: Firm, non-tender at umbilicus. GENITOURINARY: Light to moderate bleeding. EXTREMITIES: No cyanosis or edema, non-tender, without signs of DVT. Medications and IVs: Active Medications Acetaminophen (Tylenol) 650 mg PO Q4H PRN PRN Reason: PAIN SCALE 1 TO 2 Al Hydroxide/Mg Hydroxide (Milk Of Magnesia Liq) 30 ml PO Q12H PRN PRN Reason: Mild Constipation Benzocaine (Americaine 20% Top [place]) 1 spray TOPICAL Q4H PRN PRN Reason: For Perineum Discomfort Bisacodyl (Dulcolax Supp) 10 mg RECTAL DAILY PRN PRN Reason: SEVERE CONSITIPATION Fentanyl/Bupivacaine/Sodium Chlor (Fentanyl 2 Mcg-Bupiv 0.125% Epi) 150 mls @ 12 mls/hr EPIDURAL PRN PRN PRN Reason: for Labor Pain Oxytocin (Pitocin 30 Units/Ns 500 Ml Premix) 30 units in 500 mls @ 100 mls/hr IV.CONT UNSCH PRN PRN Reason: Heavy bleeding Last Infusion: 05/31/18 01:00 Dose: 100 mls/hr Ibuprofen (Motrin) 800 mg PO Q8H PRN PRN Reason: For Cramping Last Admin: 06/01/18 04:07 Dose: 800 mg Lactulose (Lactulose Liq) 30 ml PO DAILY PRN PRN Reason: SEVERE CONSITIPATION Naloxone HCl (Narcan Inj) 0.1 mg IV.PUSH Q2M PRN PRN Reason: for opiate reversal Ondansetron HCl (Zofran Inj) 4 mg IV.PUSH Q6H PRN PRN Reason: NAUSEA OR VOMITING Last Admin: 05/30/18 19:01 Dose: 4 mg Ondansetron HCl (Zofran Odt) 4 mg PO Q6H PRN PRN Reason: NAUSEA OR VOMITING Oxycodone/Acetaminophen (Percocet 5/325 Mg) 1 tab PO Q4H PRN PRN Reason: PAIN SCALE 3 TO 5 Last Admin: 06/01/18 04:08 Dose: 1 tab Oxycodone/Acetaminophen (Percocet 5/325 Mg) 2 tab PO Q4H PRN PRN Reason: PAIN SCALE 6 TO 10 Last Admin: 05/31/18 16:29 Dose: 2 tab Senna/Docusate Sodium (Beth-Colace) 1 tab PO BID PAPA Last Admin: 05/31/18 20:04 Dose: 1 tab Sennosides (Senokot) 17.2 mg PO Q12H PRN PRN Reason: Moderate Constipation Sodium Chloride (Ns Flush) 2 ml IV.FLUSH PRN PRN PRN Reason: FLUSH AFTER USING IV ACCESS Sodium Chloride (Ns Flush) 2 ml IV.FLUSH BID [facility] Last Admin: 05/31/18 23:41 Dose: Not Given Witch Lori/Glycerin (Tucks Pads) 1 applicatio RECTAL QID PRN PRN Reason: HEMORRHOIDS Zolpidem Tartrate (Ambien) 5 mg PO HS PRN PRN Reason: SLEEP Assessment and Plan - Plan 32 yo s/p at 39w2d 1. PPD #2: AF, VSS, continue routine care, anticipate d/c home , routine follow up.
[2018-06-01 08:17] VITALS: BP 101/72; PULSE 60; RESP 12; TEMP 98.1
[2018-06-01] MEDS: Senna/Docusate Sodium 8.6/50 MG Tablet PO SCH (08:48)
--- NOTE | 2018-06-01 12:26 | P.PCNCIRC ---
Procedure Date: 06/01/18 Procedure Time: 08:20 Procedure: Circumcision Pre-procedure diagnosis: circumcision Post-procedure diagnosis: circumcision Informed Consent: The risks, benefits, indications, potential complications, and alternatives were explained to the patient/family and informed consent obtained. The baby was brought to the procedure room where a time-out was done to ID the patient and the procedure. Performing Physician: Federico Wang MD Anesthesia used: 1 % lidocaine injected Type of block: dorsal penile block Device used: Mogen Description: The baby was prepped and draped in a sterile fashion. The procedure followed standard technique. The baby tolerated the procedure well without complication. Findings: Normal genitalia Estimated blood loss: none Specimen: No
== END 2018-06-01 15:07 | disposition home or self-care (01) ==
LOC: HOBED 14:36 → H2E 15:05 → H1EA 22:53
PROVIDERS: ADMIT Obstetrics & Gynecology; ATTEND Obstetrics & Gynecology